=== PATIENT | male | born 1985 | race Caucasian/White ===

== ENCOUNTER 2017-01-17 04:52 | Emergency (ER) | payer SELFPAY ==
--- NOTE | 2017-01-17 06:01 | EDM.PDOC ---
ED HPI GENERAL MEDICAL PROBLEM - General Chief Complaint: Lower Extremity Injury/Pain Stated Complaint: LEFT ANKLE INJURY Time Seen by Provider: 01/17/17 05:58 - History of Present Illness INITIAL COMMENTS - FREE TEXT/NARRATIVE: HISTORY AND PHYSICAL: History of present illness: Patient 31-year-old male presents with subacute left ankle injury that occurred when he stepped out of a truck and rolled his ankle he denies other trauma concern Review of systems: As per history of present illness and below otherwise all systems reviewed and negative. Past medical history: As per history of present illness and as reviewed below otherwise noncontributory. Surgical history: As per history of present illness and as reviewed below otherwise noncontributory. Social history: No reported history of drug or alcohol abuse. Family history: As per history of present illness and as reviewed below otherwise noncontributory. Physical exam: HEENT: Atraumatic, normocephalic, pupils reactive, negative for conjunctival pallor or scleral icterus, mucous membranes moist, throat clear, neck supple, nontender, trachea midline. Lungs: Clear to auscultation, breath sounds equal bilaterally, chest nontender. Heart: S1S2, regular, negative for clicks, rubs, or JVD. Abdomen: Soft, nondistended, nontender. Negative for masses or hepatosplenomegaly. Negative for costovertebral tenderness. Pelvis: Stable nontender. Genitourinary: Deferred. Rectal: Deferred. Extremities: Patient has small swelling noted some mild tenderness [place] region of lateral malleolus Achilles tendon is intact is no proximal fibular tenderness last neurovascular exam are unremarkable Neuro: Awake, alert, oriented. Cranial nerves II through XII unremarkable. Cerebellum unremarkable. Motor and sensory unremarkable throughout. Exam nonfocal. Diagnostics: X-ray left ankle Therapeutics: Justyn wrap and crutches Impression: #1 acute ankle injury Definitive disposition and diagnosis as appropriate pending reevaluation and review of above. Left Ankle Pain Score (Numeric/FACES): 7 - Related Data Allergies Allergy/AdvReac Type Severity Reaction Status Date / Time No Known Allergies Allergy Verified 01/17/17 05:00 Home Meds: Home Meds . [No Known Home Meds] 01/17/17 [History] Past Medical History - Infectious Disease History Infectious Disease History: Reports: Chicken Pox - Past Surgical History Dermatological Surgical History: Reports: Other (See Below) Social & Family History - Family History Family Medical History: Noncontributory - Tobacco Use Smoking Status *Q: Current Every Day Smoker Years of Tobacco use: 12 Packs/Tins Daily: 1 - Caffeine Use Caffeine Use: Reports: Coffee, Energy Drinks - Recreational Drug Use Recreational Drug Use: No Review of Systems - Review of Systems Review Of Systems: ROS reveals no pertinent complaints other than HPI. ED EXAM, GENERAL - Physical Exam Exam: See Below (See dictation) Course - Vital Signs Last Recorded V/S: Last Vital Signs Temp 36.3 C 01/17/17 05:01 Pulse 102 H 01/17/17 05:01 Resp 20 01/17/17 05:01 BP 130/74 01/17/17 05:01 Pulse Ox 96 01/17/17 05:01 - Orders/Labs/Meds Orders: Active Orders 24 hr Category Date Time Status Ankle Min 3V Lt [CR] Stat Exams 01/17/17 04:59 Taken Foot Comp Min 3V Lt [CR] Stat Exams 01/17/17 04:59 Taken Departure - Departure Time of Disposition: 06:00 Disposition: Home, Self-Care 01 Condition: Good Clinical Impression: Ankle injury - Discharge Information Referrals: PCP,None [Primary Care Provider] - Forms: ED Department Discharge Additional Instructions: The following information is given to patients seen in the emergency department who are being discharged to home. This information is to outline your options for follow-up care. We provide all patients seen in our emergency department with a follow-up referral. The need for follow-up, as well as the timing and circumstances, are variable depending upon the specifics of your emergency department visit. If you don't have a primary care physician on staff, we will provide you with a referral. We always advise you to contact your personal physician following an emergency department visit to inform them of the circumstance of the visit and for follow-up with them and/or the need for any referrals to a consulting specialist. The emergency department will also refer you to a specialist when appropriate. This referral assures that you have the opportunity for followup care with a specialist. All of these measure are taken in an effort to provide you with optimal care, which includes your followup. Under all circumstances we always encourage you to contact your private physician who remains a resource for coordinating your care. When calling for followup care, please make the office aware that this follow-up is from your recent emergency room visit. If for any reason you are refused follow-up, please contact the [facility] emergency department at and asked to speak to the emergency department charge nurse. DON [facility] [place] [id number] Justyn wrap crutches as directed Motrin/Tylenol as directed follow-up primary medical doctor 1-2 days and/or clinic above return as needed as discussed] - My Orders Last 24 Hours: My Active Orders 01/17/17 04:59 Ankle Min 3V Lt [CR] Stat Foot Comp Min 3V Lt [CR] Stat - Assessment/Plan Last 24 Hours: My Active Orders 01/17/17 04:59 Ankle Min 3V Lt [CR] Stat Foot Comp Min 3V Lt [CR] Stat
[2017-01-17 06:34] VITALS: BP 136/82
--- NOTE | 2017-01-17 15:13 | CR ---
EXAM DATE: 01/17/17 PATIENT'S AGE: 31 Patient: JASMYN RODRIGUEZ Facility: [place], [place] Site . Site : 1985 Study: XRay Extremity Left [id number]/17/2017 5:43:32 AM Ordering Physician: Doctor Hutchinson Final Report: INDICATION: INJURY TECHNIQUE: Left ankle 3 views. COMPARISON: None. FINDINGS: Bones: Alignment is normal. No fractures or bone lesions. Joint spaces: Unremarkable. Soft tissues: Unremarkable. IMPRESSION: Unremarkable left ankle. Dictated by: Manny Hanks MD @ 01/17/2017 05:50:21 (Electronic Signature) Report Signed by Proxy. JUSTO
--- NOTE | 2017-01-17 15:16 | CR ---
EXAM DATE: 01/17/17 PATIENT'S AGE: 31 Patient: JASMYN RODRIGUEZ Facility: [place], [place] Site . Site : 1985 Study: XRay Extremity Left [id number]/17/2017 5:44:06 AM Ordering Physician: Doctor Hutchinson Final Report: INDICATION: INJURY TECHNIQUE: Left foot 3 views COMPARISON: None. FINDINGS: Bones: Alignment is normal. No fractures or bone lesions. Joint spaces: Unremarkable. Soft tissues: Unremarkable. IMPRESSION: Unremarkable left foot. Dictated by: Manny Hanks MD @ 01/17/2017 05:56:22 (Electronic Signature) Report Signed by Proxy. JUSTO
== END 2017-01-17 06:32 | disposition home or self-care (01) ==
LOC: MW.ED 04:52
DX: S99.912A Unspecified injury of left ankle, initial encounter (principal); F17.210 Nicotine dependence, cigarettes, uncomplicated; W18.40XA Slipping, tripping and stumbling without falling, unspecified, initial encounter
CPT/HCPCS: 73610-26-LT; 73610-LT; 73630-26-LT; 73630-LT; 99282; 99283